=== PATIENT | female | born 1960 | race Native Hawaiian/Other Pacific Islander ===

== ENCOUNTER 2018-02-18 05:18 | Day surgery (SDC) | payer BC ==
[2018-02-18] MEDS ORDERED: MIDAZOLAM HCL 2MG/2ML VIAL IV ONE (05:19)
[2018-02-18] MEDS ORDERED: LIDOCAINE 2% MDV (20MG/ML) 20ML VIAL IV ONE (05:19)
[2018-02-18] MEDS ORDERED: ONDANSETRON HCL IV 4 MG/2 ML VIAL IVP ONE (05:19)
[2018-02-18] MEDS ORDERED: BUPIVACAINE 0.25% W/EPI MPF 30ML VIAL IVP ONE (05:19)
[2018-02-18] MEDS ORDERED: KETOROLAC 30 MG/ML VIAL IVP ONE (05:19)
[2018-02-18] MEDS ORDERED: HYDROCODONE/APAP 7.5/325MG TABLET PO ONE (05:19)
[2018-02-18] MEDS ORDERED: PROPOFOL 10 MG/ML VIAL IV ONE (05:19)
[2018-02-18] MEDS ORDERED: SEVOFLURANE 250 ML INH ONE (05:19)
[2018-02-18] MEDS ORDERED: FENTANYL PF 100MCG/2ML VIAL IV ONE (05:19)
[2018-02-18] MEDS ORDERED: MECLIZINE 25 MG TABLET PO ONE (06:00)
[2018-02-18] MEDS ORDERED: METOCLOPRAMIDE 10 MG TABLET PO ONE (06:00)
[2018-02-18] MEDS ORDERED: FAMOTIDINE 20MG TABLET PO ONE (06:00)
[2018-02-18] MEDS ORDERED: ACETAMINOPHEN 1,000 MG/100 ML BTL IV ONE ×2 (06:00)
--- NOTE | 2018-02-21 13:10 | Operative Note ---
DATE OF SURGERY: 02/18/2018 Surgeon: Aj Kinney DO Referring physician: Lucrecia Dale MD PREOPERATIVE DIAGNOSES: 1. Torn medial meniscus of the right knee. 2. Chondromalacia of the right knee. POSTOPERATIVE DIAGNOSES: 1. Torn medial and lateral meniscus of the right knee. 2. Chondromalacia of the right knee. 3. Chondrocalcinosis of the right knee. OPERATION: 1. Arthroscopic partial medial and lateral meniscectomy right knee. 2. Arthroscopic chondroplasty of the medial femoral condyle, lateral femoral condyle, and patella right knee. Anesthesia: General. PROCEDURE: This 58-year-old female was taken to the operating room and placed in the supine position on the operating room table. General anesthesia was induced. The right lower extremity was elevated, exsanguinated, and the tourniquet inflated to 300 mmHg. The right knee was prepped and draped in the usual sterile fashion after the arthroscopic knee carbajal had been applied. An inferolateral portal was established for the 4 mm arthroscope and initial evaluation of the joint demonstrated a normal appearance of the suprapatellar pouch, but grade 2 chondromalacia of mostly the medial facet and the median ridge of the patella was present, with loose fragmented articular cartilage, through an inferomedial portal chondroplasty was performed to stabilize the articular cartilage. The trochlea appeared relatively normal. The medial gutter and medial compartment were subsequently examined. The patient had extensive degenerative changes in the medial femoral condyle with grade 3 changes noted there. There was also a rip tear of the posterior horn of the medial meniscus with extension into the mid portion of the posterior horn to about the 11 o'clock position. Utilizing the basket forceps and rotating shaver, we resected unstable fragments of the posterior horn of the medial meniscus to stabilize it, leaving a rim of approximately 4 to 5 mm. This was confirmed to be stable. We then investigated the intercondylar notch, no pathology was identified. The lateral compartment was entered and advanced chondromalacia of the lateral femoral condyle was present. This was also a severe grade 3 lesion throughout the entire weightbearing surface. This was debrided. There was also chondrocalcinosis in the posterior horn of the lateral meniscus, and fragmentation and degenerative tearing present at about the 9:30 to 10:00 position, and utilizing the basket forceps and rotating shaver, we resected unstable fragments of the lateral meniscus and smooth trimmed it down to the meniscus, leaving the very healthy rim of tissue still remaining at the completion. It was probed and confirmed to be stable. The wound was irrigated with lactated Ringer's solution, suctioned, and the instruments were removed. The portals infiltrated with 0.25% Marcaine with epinephrine, 4-0 nylon sutures were placed in the puncture sites and sterile dressings applied and the patient taken to the recovery room in satisfactory condition. GROSS PATHOLOGY: This patient demonstrated grade 3 chondromalacia of the medial and lateral femoral condyle as described; the entire articular surface affected in each. The medial facet and median ridge of the patella also degenerative. The patient had a small amount of chondrocalcinosis on the lateral meniscus. There was also tears of both the medial and lateral meniscus as described. SUNDAY
== END 2018-02-18 08:18 | disposition home or self-care (01) ==
LOC: SUR 05:18
PROVIDERS: ATTEND Orthopaedic Surgery
DX: S83.241A Other tear of medial meniscus, current injury, right knee, initial encounter (principal); S83.242A Other tear of medial meniscus, current injury, left knee, initial encounter; M94.261 Chondromalacia, right knee; M11.261 Other chondrocalcinosis, right knee; I10 Essential (primary) hypertension; E78.00 Pure hypercholesterolemia, unspecified; E11.9 Type 2 diabetes mellitus without complications; Z79.4 Long term (current) use of insulin
CPT/HCPCS: 29883; 01400; J1885; J2405; J3010